=== PATIENT | female | born 1955 | race Two or more races ===

== ENCOUNTER 2018-05-27 06:18 | Day surgery (SDC) | payer OTHER ==
[~2018-05-27 06:18] MED LIST: GASTRACE CAPSU1 EACH PO; INTESTINEX680 MG PO; LEVSIN/SL0.125 MG PO; NABUMETONE500 MG PO; OMEPRAZOLE20 MG PO; PERCOCET 5/3251 TAB PO
== END 2018-05-27 11:00 | disposition home or self-care (01) ==
LOC: AMB-ENDOS 06:18
DX: K51.211 Ulcerative (chronic) proctitis with rectal bleeding (principal)

== ENCOUNTER 2020-12-13 08:48 | Day surgery (SDC) | payer OTHER | END 2020-12-13 14:45 | disposition home or self-care (01) | LOC: AMB-ENDOS 08:48 | PROVIDERS: ATTEND Surgery | DX: D12.2 Benign neoplasm of ascending colon (principal); Z20.822 Contact with and (suspected) exposure to COVID-19 ==

== ENCOUNTER 2024-07-08 09:38 | Outpatient (CLI) | payer OTHER | END 2024-07-08 09:45 | disposition home or self-care (01) | LOC: MAMO-SONO 09:38 | PROVIDERS: ATTEND Family Medicine Adult Medicine | DX: N64.9 Disorder of breast, unspecified (principal); Z12.31 Encounter for screening mammogram for malignant neoplasm of breast ==